=== PATIENT | female | born 1990 | race Caucasian/White ===

== ENCOUNTER 2017-11-07 12:10 | Emergency (ER) | payer OTHER ==
[2017-11-07 12:32] VITALS: BP 111/75
--- NOTE | 2017-11-07 13:02 | UC ---
Throat Pain/Nasal Nasim HPI - HPI Summary HPI Summary: 26-year-old female presents with 3 day history of sore throat. Associated with some mild nasal congestion, occasional chills, swollen tonsils and exudate. Denies fever, ear pain, sinus pain or pressure, chest pain, shortness of breath , cough, abdominal pain, nausea or vomiting. - History of Current Complaint Chief Complaint: UCRespiratory Stated Complaint: SORE THROAT Time Seen by Provider: 11/07/17 12:25 Hx Obtained From: Patient Hx Last Menstrual Period: 11/03/17 ?: No - IUD Onset/Duration: Gradual Onset Severity: Mild Pain Intensity: 1 Cough: None Associated Signs & Symptoms: Positive: Nasal Discharge. Negative: Dysphagia, Drooling, Hoarseness, Sinus Discomfort, Fever, Vomiting, Rash - Epiglottits Risk Factors Epiglottis Risk Factors: Negative - Allergies/Home Medications Allergies/Adverse Reactions: Allergies Allergy/AdvReac Type Severity Reaction Status Date / Time No Known Allergies Allergy Verified 11/07/17 12:24 Home Medications: Home Medications Levonorgestrel (Iud) [Kyleena IUD] 1 implant ONCE 11/07/17 [History Confirmed ] PMH/Surg Hx/FS Hx/Imm Hx - Additional Past Medical History Additional PMH: Noncontributory Previously Healthy: Yes - Surgical History Surgical History: None - Family History Family History: Noncontributory - Social History Occupation: Employed Full-time Lives: With Family Alcohol Use: Occasionally Substance Use Type: None Smoking Status (MU): Never Smoked Tobacco - Immunization History Most Recent Tetanus Shot: UTD Review of Systems Constitutional: Chills, Fatigue Skin: Negative Eyes: Negative ENT: Sore Throat Respiratory: Negative Cardiovascular: Negative Gastrointestinal: Negative Is Patient Immunocompromised?: No All Other Systems Reviewed And Are Negative: Yes Physical Exam Triage Information Reviewed: Yes Appearance: Well-Appearing, No Pain Distress, Well-Nourished Vital Signs: Initial Vital Signs Temp 98.5 F 11/07/17 12:26 Pulse 87 11/07/17 12:26 Resp 16 11/07/17 12:26 BP 111/75 11/07/17 12:26 Pulse Ox 100 11/07/17 12:26 Vital Signs Reviewed: Yes Eyes: Positive: Conjunctiva Clear. Negative: Discharge ENT: Positive: Hearing grossly normal, Pharyngeal erythema, Nasal congestion, TMs normal, Tonsillar swelling, Tonsillar exudate, Uvula midline. Negative: Nasal drainage, Trismus, Muffled voice, Hoarse voice, Sinus tenderness Neck: Positive: Supple, Nontender, No Lymphadenopathy Respiratory: Positive: Lungs clear, Normal breath sounds, No respiratory distress Cardiovascular: Positive: RRR, No Murmur Neurological: Positive: Alert Skin Exam: Normal Throat Pain/Nasal Course/Dx - Course Course Of Treatment: 26-year-old female with a three-day history of sore throat. Associated with some chills, mild nasal congestion, swollen tonsils, and tonsillar exudate. Afebrile. Nontoxic appearing. Rapid strep test was negative. Likely viral pharyngitis. Recommend symptomatic treatment. She is to return here or follow-up with a primary care provider if her symptoms aren't persist for more than 7-10 days. Warning symptoms that would require immediate medical evaluation in the emergency room were reviewed with the patient. Verbalizes understanding and agrees with plan of care. - Differential Dx/Diagnosis Differential Diagnosis/HQI/PQRI: Mononucleosis, Pharyngitis, Tonsillitis Provider Diagnoses: Viral pharyngitis Discharge - Sign-Out/Discharge Documenting (check all that apply): Patient Departure All imaging exams completed and their final reports reviewed: No Studies - Discharge Plan Condition: Stable Disposition: HOME Patient Education Materials: Pharyngitis (ED) Referrals: No Primary Care Phys,NOPCP [Primary Care Provider] - [facility] [Outside] (If needed to help establish with a primary care provider.) Additional Instructions: Your rapid strep test in the clinic today was negative. Your symptoms are likely from a viral infection. Viral infections do not respond to antibiotics and are limited to the treatment of symptoms. Viral infections typically run their course in 7-10 days. Drink plenty of fluids to avoid dehydration especially if you are running any fever. Use salt water gargles several times a day. Take over the counter acetaminophen (Tylenol) or ibuprofen (Advil, Motrin) according to directions as needed for pain or fever. You may also use Chloraseptic spray or Cepacol lonzenges according to directions which contain a numbing medication and can provide some temporary relief from your sore throat. Return here or follow up with your primary care provider if symptoms persist for more than 10 days or if you have any worsening of symptoms. Seek immediate medical attention in the emergency room if you have fever greater than 100.5 F despite taking acetaminophen or ibuprofen, are unable to swallow or develop drooling, are unable to open your mouth fully, are unable to eat or drink, have pain that is not relieved with over the counter pain medication, or have any difficulty breathing. - Billing Disposition and Condition Condition: STABLE Disposition: Home
== END 2017-11-07 13:14 | disposition home or self-care (01) ==
LOC: UCCORT 12:10
DX: J02.8 Acute pharyngitis due to other specified organisms (principal)
CPT/HCPCS: 87651; 99211; G0463

== ENCOUNTER 2019-01-07 17:41 | Emergency (ER) | payer OTHER ==
--- OUTSIDE RECORDS SUMMARY | 2019-01-07 19:07 | XMS REPORT ---
:1990 Author Organization [facility] Address [address] [place] [address] Care Team Providers Name Role Phone Matt Fink Unavailable Unavailable PROBLEMS Type Condition ICD9-CM Code [id number] Code Onset Condition SNOMED Code Dates Status Problem Other specified N93.8 Active 770534325 abnormal uterine and vaginal bleeding ALLERGIES No Information ENCOUNTERS Encounter Location Date Diagnosis [facility] [address] Dec, OBGYN [place], [place] [id number] [facility] [address] Dec, [place] [id number] [facility] Nov, [place] [id number] [facility] Nov, [place] [id number] [facility] [address] Nov, OBGYN [place], [place] [id number] [facility] 103 Nov, Other specified abnormal OBGYN [facility], uterine and vaginal [place] [id number] bleeding N93.8 and Unspecified ovarian cyst, left side N83.202 [facility] 103 Nov, OBGYN [place], [place] [id number] [facility] [address] Nov, OBGYN [place], [place] [id number] [facility] 103 Oct, Other specified abnormal OBGYN [facility], uterine and vaginal [place] [id number] bleeding N93.8 [facility] 103 Oct, Other specified abnormal OBGYN [facility], uterine and vaginal [place] [id number] bleeding N93.8 [facility] 103 Oct, Other specified abnormal OBGYN [facility], uterine and vaginal [place] [id number] bleeding N93.8 [facility] 103 Sep, Other specified abnormal OBGYN [facility], uterine and vaginal [place] [id number] bleeding N93.8 [facility] [address] Sep, OBGYN [facility], [place] [id number] [facility] [address] Sep, Encounter for screening OBGYN [facility], for infections with a [place] [id number] predominantly sexual mode of transmission Z11.3 ; Other specified abnormal uterine and vaginal bleeding N93.8 and Encounter for removal of intrauterine contraceptive device Z30.432 IMMUNIZATIONS No Known Immunizations SOCIAL HISTORY Never Assessed REASON FOR REFERRAL FUNCTIONAL STATUS PLAN OF CARE VITAL SIGNS MEDICATIONS Unknown Medications PROCEDURES No Known procedures RESULTS No Results REASON FOR VISIT Schedule in office hysteroscopy/polypectomy after cleared by hematology. Insurance Providers [facility] Health Member Patient Patient Patient Patient Patient Subscriber Subscriber Subscriber Group Insurance Plan Plan Plan Plan ID Relationship Address Phone Name Date of ID Name Date of No Type Insurance Insurance Insurance Coverage to Subscriber Address Phone Name Dates [employer] [phone] [place] [id number] [address] MEDICAL (GENERAL) HISTORY Type Description Date Medical History anxiety Surgical History none Hospitalization History none
--- OUTSIDE RECORDS SUMMARY | 2019-01-07 19:07 | XMS REPORT ---
:1990 Author [facility] Address [address] [place] [address] Care Team Providers Name Role Phone Matt Fink Unavailable Unavailable PROBLEMS Type Condition ICD9-CM Code [id number] Code Onset Condition SNOMED Code Dates Status Problem Other specified N93.8 Active 448886016 abnormal uterine and vaginal bleeding ALLERGIES No Information ENCOUNTERS Encounter Location Date Diagnosis [facility] [address] Nov, OBGYN [place] [id number] [facility] 103 Nov, OBGYN [place], [place] [id number] [facility] 103 Nov, Other specified abnormal OBGYN [facility] uterine and vaginal [place] [id number] bleeding N93.8 and Unspecified ovarian cyst, left side N83.202 [facility] [address] Nov, OBGYN [place], [place] [id number] [facility] 103 Nov, [place]BG[place], [place] [id number] [facility] 103 Oct, Other specified abnormal OBGYN [facility], uterine and vaginal [place] [id number] bleeding N93.8 [facility] 103 Oct, Other specified abnormal OBGYN [facility], uterine and vaginal [place] [id number] bleeding N93.8 [facility] 103 Oct, Other specified abnormal OBGYN [facility], uterine and vaginal [place] [id number] bleeding N93.8 [facility] 103 Sep, Other specified abnormal OBGYN [facility], uterine and vaginal [place] [id number] bleeding N93.8 [facility] 103 Sep, OBGYN [facility] [id number] [facility] Sep, Encounter for screening OBGYN [facility], for infections with a [place] [id number] predominantly sexual mode of transmission Z11.3 ; [...] hysteroscopy/polypectomy after cleared by hematology. Insurance Providers [facility] Health Member Patient Patient Patient Patient Patient Subscriber Subscriber Subscriber Group Insurance Plan Plan Plan Plan ID Relationship Address Phone Name Date of ID Name Date of No Type Insurance Insurance Insurance Coverage to Subscriber Address Phone Name Dates [employer] [phone] KENNETH [place] [id number] [address] MEDICAL (GENERAL) HISTORY Type Description Date Medical History anxiety Surgical History none Hospitalization History none
--- OUTSIDE RECORDS SUMMARY | 2019-01-07 19:07 | XMS REPORT ---
:1990 [facility] Address [address] [place] [address] Care Team Providers Name Role Phone Matt Fink Unavailable Unavailable PROBLEMS Type Condition ICD9-CM Code [id number] Code Onset Condition SNOMED Code Dates Status Problem Other specified N93.8 Active [id number] abnormal uterine and vaginal bleeding ALLERGIES No Known Allergies ENCOUNTERS Encounter Location Date Diagnosis [facility] [address] Nov, OBGYN [place], [place] [id number] [facility] 103 Nov, Other specified abnormal OBGYN [facility], uterine and vaginal [place] [id number] bleeding N93.8 and Unspecified ovarian cyst, left side N83.202 [facility] 103 Nov, OBGYN [place], [place] [id number] [facility] 103 Nov, OBGYN [place], [place] [id number] [facility] 103 Oct, Other specified abnormal OBGYN [facility], uterine and vaginal [place] [id number] bleeding N93.8 [facility] 103 Oct, Other specified abnormal OBGYN [facility], uterine and vaginal [place] [id number] bleeding N93.8 [facility] 103 Oct, Other specified abnormal OBGYN [facility], uterine and vaginal [place] [id number] bleeding N93.8 [facility] 103 Sep, Other specified abnormal OBGYN [facility], uterine and vaginal [place] [id number] bleeding N93.8 [facility] 103 Sep, OBGYN [facility] [place] [id number] [facility] 103 Sep, Encounter for screening OBGYN [facility], for infections with a [place] [id number] predominantly sexual mode of transmission Z11.3 ; Other specified abnormal uterine and vaginal bleeding N93.8 and Encounter for removal of intrauterine contraceptive device Z30.432 IMMUNIZATIONS No Known Immunizations SOCIAL HISTORY Never Assessed REASON FOR REFERRAL FUNCTIONAL STATUS PLAN OF CARE Activity Details Follow Up Activate portal. Schedule US in 6- 8 weeks to check L ov cyst. Schedule hematology consult for possible von Willebrand disease. Schedule in office hysteroscopy/polypectomy after cleared by hematology. Reason: Pending Test VON WILLEBRAND FACTOR AG Pending Test FACTOR VIII ACTIVITY Pending Test VON WILLEBRAND FACTOR ACTIVITY VITAL SIGNS Height 64 in 2018-11-11 Weight 116 lbs 2018-11-11 BMI 19.91 kg/m2 2018-11-11 Blood pressure systolic 110 mm Hg 2018-11-11 Blood pressure diastolic 58 mm Hg 2018-11-11 MEDICATIONS Unknown Medications PROCEDURES No Known procedures RESULTS No Results REASON FOR VISIT EMB.hystero f/u, See CBC, vWB Ag missing, Repeat vWB panel and refer to hematology for possible underlying bleeding d/o, Schedule hysteroscopy/ polypectomies after seen by hematology. Insurance Providers [facility] Member Patient Patient Patient Patient Patient Subscriber Subscriber Subscriber Group Insurance Plan Plan Plan Plan ID Relationship Address Phone Name Date of ID Name Date of No Type Insurance Insurance Insurance Coverage to Subscriber Address Phone Name Dates AET[employer] [phone] [employer] [place] [id number] [address] MEDICAL (GENERAL) HISTORY Type Description Date Medical History anxiety Surgical History none Hospitalization History none
--- OUTSIDE RECORDS SUMMARY | 2019-01-07 19:07 | XMS REPORT ---
:1990 Author Organization [facility] Address [address] [place] [address] Care Team Providers Name Role Phone Ayse Webb Unavailable Unavailable PROBLEMS Type Condition ICD9-CM Code [id number] Code Onset Condition SNOMED Code Dates Status Problem Other specified N93.8 Active [id number] abnormal uterine and vaginal bleeding ALLERGIES No Information ENCOUNTERS Encounter Location Date Diagnosis [facility] [address] Nov, Other specified abnormal OBGYN [facility], uterine and vaginal [place] [id number] bleeding N93.8 [facility] 103 Nov, OBGYN [place], [place] [id number] [facility] 103 Nov, OBGYN [place], [place] [id number] [facility] 103 Oct, Other specified abnormal OBGYN [facility], uterine and vaginal [place] [id number] bleeding N93.8 [facility] 103 Oct, Other specified abnormal OBGYN [facility], uterine and vaginal [place] [id number] bleeding N93.8 [facility] 103 Oct, Other specified abnormal OBGYN [facility], uterine and vaginal [place] [id number] bleeding N93.8 [facility] 103 Sep, Other specified abnormal OBGYN [facility], uterine and vaginal [place] [id number] bleeding N93.8 [facility] 103 Sep, OBGYN [place], [place] [id number] [facility] 103 Sep, Encounter for screening OBGYN [facility], for infections with a [place] [id number] predominantly sexual mode of transmission Z11.3 ; Other specified abnormal uterine and vaginal bleeding N93.8 and Encounter for removal of intrauterine contraceptive device Z30.432 IMMUNIZATIONS No Known Immunizations SOCIAL HISTORY Never Assessed REASON FOR REFERRAL FUNCTIONAL STATUS PLAN OF CARE VITAL SIGNS MEDICATIONS Unknown Medications PROCEDURES No Known procedures RESULTS No Results REASON FOR VISIT vWB Ag? Insurance Providers [facility] Member Patient Patient Patient Patient Patient Subscriber Subscriber Subscriber Group Insurance Plan Plan Plan Plan ID Relationship Address Phone Name Date of ID Name Date of No Type Insurance Insurance Insurance Coverage to Subscriber Address Phone Name Dates [employer]ET[employer] [phone] KENNETH Edwards [id number] [address] MEDICAL (GENERAL) HISTORY Type Description Date Medical History anxiety Surgical History none Hospitalization History none
--- NOTE | 2019-01-07 19:09 | UC ---
FLU HPI - HPI Summary HPI Summary: 28 yo female presents with flu symptoms. She tells me that this morning she developed fatigue, body aches, and fever of 101F. She has not taken anything OTC for her symptoms. She felt well yesterday. Slight decreased appetite, but is eating and drinking well. Denies SOB, chest pain, abdominal pain, n/v/d/c, dysuria, flank pain. - History of Current Complaint Stated Complaint: BODY ACHES, CHILLS, HEADACHE Time Seen by Provider: 01/07/19 19:09 Hx Obtained From: Patient Hx Last Menstrual Period: 10/19/18 Onset/Duration: Sudden Onset Severity Currently: Moderate Severity Initially: Moderate Pain Intensity: 6 Pain Scale Used: 0-10 Numeric - Allergy/Home Medications Allergies/Adverse Reactions: Allergies Allergy/AdvReac Type Severity Reaction Status Date / Time No Known Allergies Allergy Verified 01/07/19 19:17 Home Medications: Home Medications Iud 01/07/19 [History] PMH/Surg Hx/FS Hx/Imm Hx - Additional Past Medical History Additional PMH: None - Surgical History Surgical History: None - Family History Known Family History: Positive: Non-Contributory Negative: Diabetes Family History: Noncontributory - Social History Lives: With Family Alcohol Use: Occasionally Substance Use Type: None Smoking Status (MU): Never Smoked Tobacco - Immunization History Most Recent Tetanus Shot: UTD Review of Systems All Other Systems Reviewed And Are Negative: No Constitutional: Positive: Fever, Fatigue, Other - Body aches Skin: Positive: Negative Eyes: Positive: Negative ENT: Positive: Negative Respiratory: Positive: Cough Cardiovascular: Positive: Negative Gastrointestinal: Positive: Nausea Genitourinary: Positive: Negative Motor: Positive: Negative Neurovascular: Positive: Negative Musculoskeletal: Positive: Negative Neurological: Positive: Headache Psychological: Positive: Negative Physical Exam - Summary Physical Exam Summary: GENERAL: NAD. WDWN. No pain distress. SKIN: No rashes, sores, lesions, or open wounds. HEENT: Head: AT/NC Eyes: EOM intact. Conjunctiva clear without inflammation or discharge. Ears: Hearing grossly normal. TMs intact, no bulging, erythema, or edema. Nose: Nasal mucosa pink and moist. NTTP maxillary and frontal sinus. Throat: Posterior oropharynx without exudates, erythema, or tonsillar enlargement. Uvula midline. NECK: Supple. Nontender. No lymphadenopathy. CHEST: CTAB. No accessory muscle use. Breathing comfortably and in no distress. CV: RRR. Pulses intact. Cap refill <2seconds ABDOMEN: Soft. NTTP. No distention or guarding. No CVA tenderness. Bowel sounds present NEURO: Alert. PSYCH: Age appropriate behavior. Triage Information Reviewed: Yes Vital Signs: Vital Signs: Temp Pulse Resp BP Pulse Ox 100.5 F 112 16 121/74 100 01/07/19 19:13 01/07/19 19:13 01/07/19 19:13 01/07/19 19:13 01/07/19 19:13 Laboratory Tests Laboratory Tests 01/07/19 01/07/19 01/07/19 19:23 19:28 19:41 POC Urine Color Yellow POC Urine Clarity Clear POC Urine pH 8.5 POC Ur Specif [place] 1.015 POC Urine Protein Trace A POC Ur Glucose (UA) Negative POC Urine Ketones Trace A POC Urine Blood Negative POC Urine Nitrite Negative POC Urine Bilirubin Negative POC Urine Urobilinogen 0.2 POC U Leukocyte Esteras Negative Influenza A (Rapid) Positive A Group A Strep Rapid Negative Vital Signs Reviewed: Yes Flu Course/Dx - Course Course Of Treatment: POC flu positive. Advised supportive care. Pt declined tamiflu at this time. - Differential Dx/Diagnosis Provider Diagnosis: Influenza Discharge ED - Sign-Out/Discharge Documenting (check all that apply): Patient Departure All imaging exams completed and their final reports reviewed: No Studies - Discharge Plan Condition: Stable Disposition: HOME Patient Education Materials: Influenza (ED) Forms: *Work Release Referrals: Sabina Mayen DO [Primary Care Provider] - Additional Instructions: If you develop a fever, shortness of breath, chest pain, new or worsening symptoms - please call your PCP or go to the ED immediately. Viral infections do not respond to antibiotics and are limited to the treatment of symptoms. Viral infections typically run their course in 7-10 days. Drink plenty of fluids, especially if you are running any fever. Use salt water gargles several times a day. Take over the counter acetaminophen (Tylenol) or ibuprofen (Advil, Motrin) according to directions as needed for pain or fever. You may also use Chloraseptic spray or Cepacol lonzenges according to directions which contain a numbing medication and can provide some temporary relief from a sore throat. Return here or follow up with your primary care provider in 7 days if symptoms persist. - Billing Disposition and Condition Condition: STABLE Disposition: Home
[2019-01-07 19:17] VITALS: BP 121/74
[2019-01-07 19:40] LABS: Influenza A Molecular POSITIVE (Negative)
== END 2019-01-07 20:18 | disposition home or self-care (01) ==
LOC: UCCORT 17:41
DX: J10.1 Influenza due to other identified influenza virus with other respiratory manifestations (principal)
CPT/HCPCS: 81003; 87651; 99211; G0463